=== PATIENT | female | born 1975 | race African-American/Black ===

== ENCOUNTER 2022-06-09 08:21 | Emergency (ER) | payer BC, OTHER, SELFPAY | END 2022-06-09 09:30 | disposition home or self-care (01) | LOC: NAV ERS 08:21 | DX: U07.1 COVID-19 (principal) | CPT/HCPCS: 87804; 99283; U0003; U0005 ==

== ENCOUNTER 2024-06-30 03:27 | Emergency (ER) | payer BC ==
[2024-06-30] MEDS ORDERED: Ketorolac Tromethamine 30 MG (1 mL) VIAL ONE (03:48)
== END 2024-06-30 03:56 | disposition home or self-care (01) ==
LOC: NAV ERS 03:27
DX: M54.32 Sciatica, left side (principal); G40.909 Epilepsy, unspecified, not intractable, without status epilepticus
CPT/HCPCS: 96372; 99283; J1885